=== PATIENT | female | born 1965 | race American Indian/Alaskan Native ===

== ENCOUNTER 2018-12-28 18:10 | Emergency (ER) | payer OTHER ==
[2018-12-28] MEDS ORDERED: Cyclobenzaprine 10 MG Tab PO ONE (18:45)
[2018-12-28] MEDS ORDERED: Ketorolac 60 MG/2 ML SDV IM ONE (18:45)
--- NOTE | 2018-12-28 18:48 | EDM.PDOC ---
ED HPI GENERAL MEDICAL PROBLEM - General Chief Complaint: Upper Extremity Injury/Pain Stated Complaint: L SHOULDER ARM PULL Time Seen by Provider: 12/28/18 18:20 Source of Information: Reports: Patient History Limitations: Reports: No Limitations - History of Present Illness INITIAL COMMENTS - FREE TEXT/NARRATIVE: 53-year-old female who reports at approximately 2:58 PM today she was moving a alevism pew and she felt a pain in her left shoulder and left arm was a sharp and tearing type pain. Since that time she has had pain with any movement of her left shoulder and left arm and some feelings of numbness and tingling down her arm. It is rated by her as a 9/10. She has already had some pain in her left elbow that she attributes to "tennis elbow". The pain in her left arm is a sharp and tingly type pain. It is worse with movement and with palpation and some areas. She has normal coloration of her left hand and she does have full range of motion despite the pain. She has no neck pain. No leg pain. No back pain. No other associated signs or symptoms. There are no other modifying factors. 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 Surgical history as outlined below.) - Past Surgical History Musculoskeletal Surgical History: Reports: Arthroscopic Knee (Left knee), Other (See Below) (Left arm surgery) Social & Family History - Tobacco Use Smoking Status *Q: Never Smoker (Denies smoking) - Alcohol Use Alcohol Use History: No - Living Situation & Occupation Social History Comment: Patient is here with other family members and one other family member who is being seen for a painful condition as well. Review of Systems - Review of Systems Review Of Systems: See Below Constitutional: Reports: No Symptoms Eyes: Reports: No Symptoms Ears: Reports: No Symptoms Nose: Reports: No Symptoms Mouth/Throat: Reports: No Symptoms Respiratory: Reports: No Symptoms Cardiovascular: Reports: No Symptoms GI/Abdominal: Reports: No Symptoms Genitourinary: Reports: No Symptoms Musculoskeletal: Reports: Shoulder Pain (Left), Arm Pain (Left). Denies: Neck Pain Skin: Reports: No Symptoms Neurological: Reports: No Symptoms ED EXAM, GENERAL - Physical Exam Exam: See Below Exam Limited By: No Limitations General Appearance: Alert, WD/WN, Moderate Distress (Appears in some pain) Eye Exam: Bilateral Eye: EOMI, Normal Inspection, PERRL Ears: Normal External Exam Ear Exam: Bilateral Ear: Auricle Normal Nose: Normal Inspection, Normal Mucosa, No Blood Throat/Mouth: Normal Inspection, Normal Lips, Normal Oropharynx, Normal Voice, No Airway Compromise Head: Atraumatic, Normocephalic Neck: Normal Inspection, Supple, Non-Tender, Full Range of Motion Respiratory/Chest: No Respiratory Distress, Lungs Clear, Normal Breath Sounds, No Accessory Muscle Use, Chest Non-Tender Cardiovascular: Normal Peripheral Pulses, Regular Rate, Rhythm, No JVD Peripheral Pulses: 2+: Radial (L), Radial (R) GI/Abdominal: Normal Bowel Sounds, Soft, Non-Tender, No Mass Back Exam: Normal Inspection, Full Range of Motion Extremities: Normal Inspection, Normal Range of Motion, No Pedal Edema, Normal Capillary Refill, Arm Pain, Other (Some pain with palpation along left arm) Neurological: Alert, Oriented, CN II-XII Intact, Normal Cognition, No Motor/ Sensory Deficits Skin Exam: Warm, Dry, Intact, Normal Color, No Rash Course - Vital Signs Last Recorded V/S: Last Vital Signs Temp 36.8 C 12/28/18 18:25 Pulse 68 12/28/18 19:12 Resp 16 12/28/18 19:12 BP 134/83 12/28/18 19:12 Pulse Ox 96 12/28/18 19:12 - Orders/Labs/Meds Meds: Medications Discontinued Medications Generic Name Dose Route Start Last Admin Trade Name Freq PRN Reason Stop Dose Admin Cyclobenzaprine HCl 10 mg 12/28/18 18:45 12/28/18 18:50 Flexeril PO 12/28/18 18:46 10 mg ONETIME ONE Administration Ketorolac Tromethamine 60 mg 12/28/18 18:45 12/28/18 18:50 Toradol IM 12/28/18 18:46 60 mg ONETIME ONE Administration - Re-Assessments/Exams Free Text/Narrative Re-Assessment/Exam: 12/28/18 18:43: Patient with acute strain to left shoulder and arm. This could also be the beginning of a disc problem in her neck. She has no localized weakness. I will give her an injection of Toradol for pain and Flexeril as muscle relaxer. I will advise her to take ibuprofen for pain give her a prescription of Flexeril for her pain. She is to follow-up with her primary doctor. Departure - Departure Time of Disposition: 18:50 Disposition: Home, Self-Care 01 Condition: Good Clinical Impression: Muscle strain of left upper extremity Qualifiers: Encounter type: initial encounter Qualified Code(s): S46.912A - Strain of unspecified muscle, fascia and tendon at shoulder and upper arm level, left arm , initial encounter - Discharge Information Prescriptions: Cyclobenzaprine [Flexeril] 10 mg PO TID PRN #15 tab PRN Reason: Muscle spasm or muscle pain Instructions: Muscle Strain, [id number] Referrals: PCP,None [Primary Care Provider] - Forms: ED Department Discharge Additional Instructions: You appear to have an acute strain to your left upper arm/shoulder area. This could also be a problem with a disc in your neck. Avoid strenuous use with your left arm and have graded increase in activity with your left arm as tolerated. You may take ibuprofen 600-800 mg by mouth every 6-8 hours as needed for pain. Medication as prescribed (Flexeril 10 mg). You will need to follow-up with your primary doctor.
== END 2018-12-28 19:30 | disposition home or self-care (01) ==
LOC: FB.ED 18:10
DX: S46.912A Strain of unspecified muscle, fascia and tendon at shoulder and upper arm level, left arm, initial encounter (principal); X58.XXXA Exposure to other specified factors, initial encounter
CPT/HCPCS: 96372; 99283; A9270; J1885